=== PATIENT | male | born 1930 | race African-American/Black ===

== ENCOUNTER 2019-05-11 10:45 | Outpatient (CLI) | payer MEDICARE, OTHER ==
--- NOTE | 2019-05-11 11:01 | RAD ---
Exam: Chest 2 views: HISTORY: Dyspnea COMPARISON: 04/26/2018 FINDINGS: Stable small left pleural effusion. Unremarkable right chest. Biapical pleural thickening. Normal siz e heart. IMPRESSION: Stable left pleural effusion. Atherosclerosis of the aorta.
== END 2019-05-11 10:46 | disposition home or self-care (01) ==
LOC: RAD 10:45
PROVIDERS: ATTEND Internal Medicine Critical Care Medicine
DX: R06.00 Dyspnea, unspecified (principal); J90 Pleural effusion, not elsewhere classified; I70.0 Atherosclerosis of aorta
CPT/HCPCS: 71046